=== PATIENT | male | born 1980 | race Caucasian/White ===

== ENCOUNTER 2021-10-07 18:38 | Emergency (ER) | payer OTHER ==
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
== END 2021-10-07 19:19 ==
LOC: ED 18:38
DX: I46.9 Cardiac arrest, cause unspecified (principal); T79.4XXA Traumatic shock, initial encounter; S86.922A Laceration of unspecified muscle(s) and tendon(s) at lower leg level, left leg, initial encounter; S91.011A Laceration without foreign body, right ankle, initial encounter; S86.921A Laceration of unspecified muscle(s) and tendon(s) at lower leg level, right leg, initial encounter; J45.909 Unspecified asthma, uncomplicated; E66.01 Morbid (severe) obesity due to excess calories; V97.32XA Injured by rotating propeller, initial encounter
CPT/HCPCS: 71045; J0171; J0461